=== PATIENT | female | born 1995 | race African-American/Black ===

== ENCOUNTER 2024-01-11 14:59 | Day surgery (SDC) | payer OTHER ==
[2024-01-11 15:21] VITALS: BMI 39.9
[2024-01-11] MEDS ORDERED: hydrALAZINE 20 MG/ML VIAL SLOW IVP PRN (16:01)
[2024-01-11 17:01] LABS: Bilirubin Neg (Negative); Blood, Urine 25 (Negative); Clarity Slightly Cloudy (Clear); Glucose, Urine (Dipstick) Normal (Negative); Ketone, Urine Negative (Negative); Leukocyte Negative (Negative); Nitrite Negative (Negative); Protein, Urine (Dipstick) 15 mg/dl (Neg-Trace); Specific Gravity, Urine 1.015 (1.005-1.030); Urobilinogen Normal mg/dL (Less than 2)
[2024-01-11 17:17] LABS: Bacteria/HPF 2+ HPF (None Seen); CAUTI Indications for Culture Dysuria,urgency,freq; Transitional Epithelial 0-3 HPF (None Seen); WBC/HPF 0-3 HPF (0-3)
[2024-01-11 17:18] LABS: Mucous/LPF 2+ LPF (<2+)
[2024-01-11 17:19] LABS: Urine Culture Reflex No No
== END 2024-01-11 18:45 | disposition home or self-care (01) ==
LOC: CSHLD/OP 14:59
PROVIDERS: ATTEND Obstetrics & Gynecology
DX: O36.8130 Decreased fetal movements, third trimester, not applicable or unspecified (principal); O26.853 Spotting complicating pregnancy, third trimester; O99.353 Diseases of the nervous system complicating pregnancy, third trimester; G50.0 Trigeminal neuralgia; Z79.899 Other long term (current) drug therapy; Z3A.35 35 weeks gestation of pregnancy
CPT/HCPCS: 76819; 81001; 87086; 87480; 87510; 87660

== ENCOUNTER 2024-02-27 19:30 | Inpatient (IN) | payer OTHER ==
[2024-02-27 20:52] VITALS: BMI 40.9
[2024-02-27] MEDS ORDERED: Diphenoxylate HCl/Atropine Tablet PO PRN (20:57)
[2024-02-27] MEDS ORDERED: Misoprostol 200 MCG TAB PR PRN (20:57)
[2024-02-27] MEDS ORDERED: Lidocaine 1% (PF) 30 ML VIAL SC PRN (20:57)
[2024-02-27] MEDS ORDERED: hydrALAZINE 20 MG/ML VIAL SLOW IVP PRN (20:57)
[2024-02-27] MEDS ORDERED: Methylergonovine 0.2 MG/ML VIAL IM PRN (20:57)
[2024-02-27] MEDS ORDERED: Acetaminophen 500 MG TAB PO PRN (20:57)
[2024-02-27] MEDS ORDERED: Promethazine HCl 25 MG/ML VIAL IM PRN (20:57)
[2024-02-27] MEDS ORDERED: Tranexamic Acid 1,000 MG/10 ML VIAL IVP PRN (20:57)
[2024-02-27] MEDS ORDERED: Ondansetron PF 4 MG/2 ML Vial IVP PRN (20:57)
[2024-02-27] MEDS ORDERED: Carboprost 250 MCG/ML AMP IM PRN (20:57)
[2024-02-27] MEDS ORDERED: Oxytocin 30 units/NS 500 ML 500 ML IV SCH (21:00)
[2024-02-27] MEDS: Lactated Ringer's 1,000 ML IV SCH (21:15)
[2024-02-27 21:51] LABS: Hematocrit 31.4 % (34.9-44.5); Hemoglobin 10.1 g/dL (12.0-15.5); Mean Corpuscular HGB CONC 32.2 g/dL (32.0-36.0); Mean Corpuscular Hemoglobin 28.7 pg (27.0-33.0); Mean Corpuscular Volume 89.2 fL (81.6-98.3); Mean Platelet Volume 10.1 fL (7.4-10.4); Platelet Count 307 10x3/uL (150-450); RBC Distribution Width 14.6 % (11.5-14.5); Red Blood Cell (RBC) Count 3.52 10x6/uL (3.90-5.03); White Blood Cell (WBC) Count 13.6 10x3/uL (3.5-10.5)
[2024-02-27 22:19] LABS: HBsAg Index 0.15 S/CO (0-0.99); Hep B Surf Ag - L&D Non-Reactive S/CO (NonReactive); Syphilis Antibody Nonreactive (Nonreactive); Syphilis Antibody Index 0.03 S/CO (<1.00 Non-Reactive)
[2024-02-28] MEDS: fentaNYL 50 mcg/mL 1 mL Vial SLOW IVP PRN ×2 (01:04→15:07)
[2024-02-28] MEDS: fentaNYL/Ropivacaine Epidural 100 ML ONE (03:39)
[2024-02-28] MEDS ORDERED: Promethazine HCl 25 MG/ML VIAL IM PRN ×2 (03:46→13:32)
[2024-02-28] MEDS ORDERED: ePHEDrine Sulfate 50 MG/10 ML VIAL SLOW IVP PRN (03:46)
[2024-02-28] MEDS ORDERED: diphenhydrAMINE 50 MG/ML VIAL IVP PRN ×2 (03:46→13:32)
[2024-02-28] MEDS ORDERED: Ondansetron PF 4 MG/2 ML Vial IVP PRN ×3 (03:46→13:32)
[2024-02-28] MEDS ORDERED: Moisturizing Cream (Eucerin) 113 GM JAR TOP PRN ×2 (03:46→13:32)
[2024-02-28] MEDS ORDERED: Acetaminophen 325 MG TAB PO PRN (03:46)
[2024-02-28] MEDS ORDERED: Lactated Ringer's 500 ML IV PRN (03:46)
[2024-02-28] MEDS ORDERED: Naloxone HCl 0.4 mg/ml Vial IVP PRN ×4 (03:46→13:32)
[2024-02-28] MEDS ORDERED: fentaNYL 2 mcg/Ropivacaine 0.2% Epidural 100 ML CADD EPIDURAL SCH (04:00)
[2024-02-28] MEDS ORDERED: Communication Order-Pharmacy FS SCH ×2 (04:00→13:45)
[2024-02-28] MEDS: Oxytocin 30 units/NS 500 ML 500 ML IV SCH (05:26)
[2024-02-28] MEDS ORDERED: Famotidine/PF 20 mg/2ml Vial SLOW IVP PRN (11:47)
[2024-02-28] MEDS ORDERED: Bicitra 30 ML UDCUP PO PRN (11:47)
[2024-02-28] MEDS ORDERED: Azithromycin 500 MG in Sodium Chloride 0.9% 250 ML 250 ML IVPB SCH (12:00)
[2024-02-28] MEDS ORDERED: CEFAZOLIN 2 GM in Sodium Chloride 0.9% 100 ML IVPB SCH (12:00)
[2024-02-28 12:28] LABS: Analyzer IN Cardio CS NICU; pH (Cord, venous) 7.265 (7.250-7.350)
[2024-02-28] MEDS ORDERED: Naloxone HCl 0.4 mg/ml Vial IV PRN (13:32)
[2024-02-28] MEDS ORDERED: Meperidine HCl/PF 25 MG (1 mL) VIAL SLOW IVP PRN (13:32)
[2024-02-28] MEDS: Tranexamic Acid 1,000 MG/10 ML VIAL IVP SCH (13:33)
[2024-02-28 13:59] LABS: D-Dimer Test 7.51 mcg/mL (0.19-0.50); INR-International Normal Ratio 0.9; PTT 25.9 sec (22.0-33.0)
[2024-02-28] MEDS: Misoprostol 100 MCG TAB VAG SCH (15:05)
[2024-02-28] MEDS: Dexmedetomidine 200 MCG/2 ML VIAL ONE (16:56)
[2024-02-28] MEDS: fentaNYL 50 mcg/mL 1 mL Vial ONE (16:56)
[2024-02-28] MEDS: Sterile Water 10 ML ONE (16:57)
[2024-02-28] MEDS: Ketorolac Tromethamine 30 MG (1 mL) VIAL ONE (16:57)
[2024-02-28] MEDS: Azithromycin 500 MG VIAL ONE (16:57)
[2024-02-28] MEDS: Midazolam HCl 2 mg/2 ml Vial ONE (16:57)
[2024-02-28] MEDS: CEFAZOLIN 2 GM VIAL ONE (16:57)
[2024-02-28] MEDS: Ondansetron PF 4 MG/2 ML Vial ONE (16:57)
[2024-02-28] MEDS: Fentanyl 250 MCG/5 ML VIAL ONE (16:57)
[2024-02-28] MEDS ORDERED: Communication Order-Pharmacy FS PRN (17:48)
[2024-02-28] MEDS: Ketorolac Tromethamine 30 MG (1 mL) VIAL IVP PRN (18:03)
[2024-02-28] MEDS: HYDROmorphone/PF 10 MG in Sodium Chloride 0.9% 49 ML IVPB PRN (18:54)
[2024-02-28] MEDS ORDERED: Ketorolac Tromethamine 30 MG (1 mL) VIAL IVP SCH (19:00)
[2024-02-28] MEDS ORDERED: Oxytocin 30 units/NS 500 ML 500 ML IV SCH (19:57)
[2024-02-28] MEDS ORDERED: Methylergonovine 0.2 MG/ML VIAL IM PRN (19:57)
[2024-02-28] MEDS ORDERED: Misoprostol 200 MCG TAB PR PRN (19:57)
[2024-02-28] MEDS ORDERED: hydrALAZINE 20 MG/ML VIAL SLOW IVP PRN (19:57)
[2024-02-28] MEDS ORDERED: Lanolin Ointment 7 GM TUBE TOP PRN (19:57)
[2024-02-28] MEDS ORDERED: Bisacodyl 10 MG SUPP PR PRN (19:57)
[2024-02-28] MEDS: Docusate 100 MG CAP PO SCH (20:53)
[2024-02-29 05:54] LABS: Hematocrit 23.3 % (34.9-44.5); Hemoglobin 7.6 g/dL (12.0-15.5); Mean Corpuscular HGB CONC 32.6 g/dL (32.0-36.0); Mean Corpuscular Hemoglobin 28.7 pg (27.0-33.0); Mean Corpuscular Volume 87.9 fL (81.6-98.3); Mean Platelet Volume 10.1 fL (7.4-10.4); Platelet Count 238 10x3/uL (150-450); RBC Distribution Width 14.6 % (11.5-14.5); Red Blood Cell (RBC) Count 2.65 10x6/uL (3.90-5.03)
[2024-02-29] MEDS: Boostrix 0.5 ML (Tdap) VIAL (>/=7 yrs of age) IM ONE (07:22)
[2024-02-29] MEDS: Prenatal Vitamin 1 TAB PO SCH (10:32)
[2024-02-29] MEDS: Ferrous Sulfate 325 MG TAB PO SCH ×2 (10:32→16:28)
[2024-02-29] MEDS: Enoxaparin 40 MG (0.4 mL) SYRINGE SC SCH ×2 (12:35→20:40)
[2024-02-29] MEDS: HYDROcodone/Acetaminophen 5/325 mg Tablet PO PRN (12:36)
[2024-02-29] MEDS ORDERED: Bupivacaine PF 0.5% 30 ML VIAL ONE (13:00)
[2024-02-29] MEDS: Ibuprofen 800 MG TAB PO SCH (15:10)
[2024-02-29] MEDS: Ibuprofen 800 MG TAB PO PRN (22:28)
[2024-03-01 05:19] LABS: #Basophils 0.03 10x3/uL (0.0-0.2); #Eosinphils 0.13 10x3/uL (0.0-0.5); #Monocytes 0.91 10x3/uL (0.0-1.1); #Neutrophils 8.64 10x3/uL (1.5-8.4); %Basophils 0.3 % (0.0-2.0); %Eosinophils 1.1 % (0.0-6.0); %Lymphocytes 16.2 % (18.0-47.0); %Monocytes 7.8 % (0.0-10.0); %Neutrophils 73.8 % (40.0-75.0); Hematocrit 22.7 % (34.9-44.5); Hemoglobin 7.3 g/dL (12.0-15.5); Mean Corpuscular HGB CONC 32.2 g/dL (32.0-36.0); Mean Corpuscular Volume 90.1 fL (81.6-98.3); Mean Platelet Volume 10.1 fL (7.4-10.4); Platelet Count 272 10x3/uL (150-450); RBC Distribution Width 14.9 % (11.5-14.5); Red Blood Cell (RBC) Count 2.52 10x6/uL (3.90-5.03); White Blood Cell (WBC) Count 11.7 10x3/uL (3.5-10.5)
[2024-03-01] MEDS ORDERED: Piperacillin/Tazobactam 4.5 GM in Sodium Chloride 0.9% 100 ML IVPB SCH (10:45)
[2024-03-01] MEDS: Piperacillin/Tazobactam 3.375 GM in Sodium Chloride 0.9% 100 ML IVPB SCH ×2 (10:57→15:25)
[2024-03-01] MEDS: Cyclobenzaprine 10 MG TAB PO PRN (15:25)
[2024-03-01] MEDS: Ketorolac Tromethamine 30 MG (1 mL) VIAL IVP PRN (16:48)
[2024-03-01] MEDS ORDERED: Piperacillin/Tazobactam 3.375 GM in Sodium Chloride 0.9% 100 ML IVPB SCH (18:30)
[2024-03-02 07:27] LABS: #Basophils 0.02 10x3/uL (0.0-0.2); #Eosinphils 0.12 10x3/uL (0.0-0.5); #Monocytes 1.15 10x3/uL (0.0-1.1); #Neutrophils 13.91 10x3/uL (1.5-8.4); %Basophils 0.1 % (0.0-2.0); %Eosinophils 0.7 % (0.0-6.0); %Lymphocytes 9.8 % (18.0-47.0); %Monocytes 6.8 % (0.0-10.0); %Neutrophils 81.9 % (40.0-75.0); Hematocrit 22.6 % (34.9-44.5); Hemoglobin 7.2 g/dL (12.0-15.5); Mean Corpuscular HGB CONC 31.9 g/dL (32.0-36.0); Mean Corpuscular Hemoglobin 28.7 pg (27.0-33.0); Mean Platelet Volume 9.7 fL (7.4-10.4); Platelet Count 285 10x3/uL (150-450); RBC Distribution Width 15.1 % (11.5-14.5); Red Blood Cell (RBC) Count 2.51 10x6/uL (3.90-5.03)
[2024-03-02] MEDS ORDERED: Iopamidol 370 76% 100 ML VIAL ONE (07:47)
[2024-03-02] MEDS: Lactated Ringer's 500 ML IV SCH (07:47)
[2024-03-02] MEDS: Gabapentin 300 MG CAP PO PRN (07:47)
[2024-03-02] MEDS: VANCOMYCIN 2 GRAM/400 ML BAG 2 GM in Premix 1 BAG IVPB SCH (08:26)
[2024-03-02] MEDS: Lactated Ringer's 1,000 ML IV SCH ×2 (11:22→12:18)
[2024-03-02 15:06] LABS: Bilirubin Neg (Negative); Blood, Urine 250 (Negative); Clarity Slightly Cloudy (Clear); Glucose, Urine (Dipstick) Normal (Negative); Ketone, Urine Negative (Negative); Leukocyte 500 (Negative); Nitrite Negative (Negative); Protein, Urine (Dipstick) 30 mg/dl (Neg-Trace); Urobilinogen Normal mg/dL (Less than 2)
[2024-03-02 16:52] LABS: CAUTI Indications for Culture Fever or rigors; RBC/HPF 21-50 HPF (0-3)
[2024-03-02 16:55] LABS: Bacteria/HPF 1+ HPF (None Seen); Mucous/LPF 1+ LPF (<2+)
[2024-03-02 16:59] LABS: Urine Culture Reflex Yes Yes
[2024-03-02] MEDS: VANCOMYCIN 1.75 GM/350 ML BAG 1.75 GM in Premix 1 BAG IVPB SCH (19:32)
[2024-03-03 05:09] LABS: #Basophils 0.02 10x3/uL (0.0-0.2); #Eosinphils 0.21 10x3/uL (0.0-0.5); #Monocytes 0.85 10x3/uL (0.0-1.1); #Neutrophils 9.21 10x3/uL (1.5-8.4); %Basophils 0.2 % (0.0-2.0); %Eosinophils 1.7 % (0.0-6.0); %Lymphocytes 14.5 % (18.0-47.0); %Neutrophils 75.8 % (40.0-75.0); Hemoglobin 7.1 g/dL (12.0-15.5); Mean Corpuscular HGB CONC 32.3 g/dL (32.0-36.0); Mean Corpuscular Hemoglobin 28.6 pg (27.0-33.0); Mean Corpuscular Volume 88.7 fL (81.6-98.3); Mean Platelet Volume 9.8 fL (7.4-10.4); Platelet Count 326 10x3/uL (150-450); RBC Distribution Width 15.5 % (11.5-14.5); Red Blood Cell (RBC) Count 2.48 10x6/uL (3.90-5.03); White Blood Cell (WBC) Count 12.2 10x3/uL (3.5-10.5)
[2024-03-03 05:15] LABS: Vancomycin, Random 15.9 ug/mL (See Comment)
[2024-03-03 05:17] LABS: ALT (SGPT) 11 U/L (8-55); AST (SGOT) 16 U/L (5-34); Albumin 2.1 g/dL (3.5-5.0); Alkaline Phosphatase 127 U/L (40-110); Anion Gap 14 mmol/L (10-20); BUN (Urea Nitrogen) 7 mg/dL (7.0-18.7); Bilirubin, Total 0.3 mg/dL (0.2-1.2); Calc. Creatinine Clearance 199 mL/min (70-130); Calcium 8.3 mg/dL (7.8-10.44); Carbon Dioxide 18 mmol/L (22-29); Chloride 110 mmol/L (98-107); Estimated GFR 98; Glucose 74 mg/dL (70-105); Potassium 3.7 mmol/L (3.5-5.1); Protein, Total 5.1 g/dL (6.0-8.3); Sodium 138 mmol/L (136-145)
[2024-03-03] MEDS: HYDROcodone/Acetaminophen 5/325 mg Tablet PO PRN (07:59)
[2024-03-03] MEDS: VANCOMYCIN 1.25 GM/250 ML BAG 1.25 GM in Premix 1 BAG IVPB SCH (07:59)
[2024-03-03] MEDS: Polyethylene Glycol 3350 17 GM Packet PO SCH (08:09)
[2024-03-03] MEDS ORDERED: Acetaminophen 325 MG TAB PO PRN (08:42)
[2024-03-03] MEDS ORDERED: Senokot 8.6 MG TAB PO SCH (08:58)
[2024-03-03] MEDS: Ibuprofen 800 MG TAB PO SCH (09:38)
[2024-03-03] MEDS: Lidocaine 4% Patch TD SCH (09:38)
[2024-03-03] MEDS: Gabapentin 300 MG CAP PO SCH (09:47)
[2024-03-03] MEDS: Acetaminophen 325 MG TAB PO SCH (20:34)
[2024-03-04 05:22] LABS: #Basophils 0.03 10x3/uL (0.0-0.2); #Eosinphils 0.19 10x3/uL (0.0-0.5); #Monocytes 0.65 10x3/uL (0.0-1.1); #Neutrophils 6.84 10x3/uL (1.5-8.4); %Basophils 0.3 % (0.0-2.0); %Lymphocytes 15.7 % (18.0-47.0); %Neutrophils 73.6 % (40.0-75.0); Hematocrit 22.3 % (34.9-44.5); Mean Corpuscular HGB CONC 31.4 g/dL (32.0-36.0); Mean Corpuscular Hemoglobin 28.7 pg (27.0-33.0); Mean Corpuscular Volume 91.4 fL (81.6-98.3); Mean Platelet Volume 9.6 fL (7.4-10.4); Platelet Count 352 10x3/uL (150-450); RBC Distribution Width 15.2 % (11.5-14.5); Red Blood Cell (RBC) Count 2.44 10x6/uL (3.90-5.03); White Blood Cell (WBC) Count 9.3 10x3/uL (3.5-10.5)
[2024-03-04 10:56] VITALS: BP 132/78; TEMP 98.3
[2024-03-04] MEDS ORDERED: Amoxicillin/Potassium Clav 875 MG TAB PO SCH (21:00)
[2024-03-04] MEDS ORDERED: Doxycycline 100 MG CAP PO SCH (21:00)
== END 2024-03-04 18:05 | disposition home or self-care (01) | DRG 788 ==
LOC: CSHLD 19:53 → CSHPP 02-28 15:28 → UNDODISIN 03-01 17:30
PROVIDERS: ADMIT Emergency Medicine; ATTEND Emergency Medicine
PROC: 10D00Z1 Extraction of Products of Conception, Low, Open Approach (ICD-10-PCS; principal; 2024-02-28)
PROC: 04L Lower Arteries, Occlusion (ICD-10-PCS; 2024-02-28)
DX: O99.354 Diseases of the nervous system complicating childbirth (principal); G50.0 Trigeminal neuralgia; Z79.899 Other long term (current) drug therapy; Z3A.39 39 weeks gestation of pregnancy; O76 Abnormality in fetal heart rate and rhythm complicating labor and delivery; Z37.0 Single live birth; O72.1 Other immediate postpartum hemorrhage; O99.214 Obesity complicating childbirth; E66.9 Obesity, unspecified; O90.2 Hematoma of obstetric wound; O90.81 Anemia of the puerperium; D50.0 Iron deficiency anemia secondary to blood loss (chronic); O86.12 Endometritis following delivery
CPT/HCPCS: 36415; 51702; 74018; 74177; 80053; 80202; 81001; 82565; 82805; 84145; 84520; 85025; 85027; 85049; 85300; 85362; 85384; 85610; 85730; 86140; 86780; 86850; 86900; 86901; 87040; 87086; 87340; 93005; 93010; J0665; J1170; J1650; J1885; J2250; J2405; J2543; J2590; J3010; J3370; J7120; Q9967